=== PATIENT | female | born 1960 | race Caucasian/White ===

== ENCOUNTER → 2017-09-23 | Outpatient (CLI) | payer MEDICAID ==
--- NOTE | 2017-09-23 14:01 | RAD ---
Hepatic ultrasound, 09/23/2017: History: Hepatitis C The gallbladder is surgically absent. The common hepatic duct is of normal caliber. The liver appears to be within normal limits in size. There is no evidence of a hepatic mass. The visualized portions of the pancreas and right kidney are unremarkable. IMPRESSION: 1. Status post cholecystectomy. 2. No hepatic abnormality is detected.
== END | disposition home or self-care (01) ==
LOC: US 12:19
PROVIDERS: ATTEND Family Medicine
DX: B19.20 Unspecified viral hepatitis C without hepatic coma (principal); Z90.49 Acquired absence of other specified parts of digestive tract
CPT/HCPCS: 76705